=== PATIENT | male | born 1945 | race Caucasian/White ===

== ENCOUNTER → 2020-10-09 08:21 | Outpatient (CLI) | payer MEDICARE, OTHER, SELFPAY ==
[2020-10-09 19:03] LABS: Alanine Aminotransferase 33 IU/L (<50); Albumin 3.7 g/dL (3.5-5.0); Albumin Globulin Ratio 1.4 (1.0-2.8); Alkaline Phosphatase 83 U/L (38-126); Aspartate Aminotransferase 29 IU/L (17-59); BUN Creatinine Ratio 21.6 (6-22); Bilirubin Total 0.4 mg/dL (0.2-1.3); Blood Urea Nitrogen 19 mg/dL (9-20); Carbon Dioxide 29 mmol/L (22-32); Chloride 103 mmol/L (98-107); Cholesterol 203 mg/dL (140-199); Estimated Glomerular Filt Rate > 60.0 mL/min (>60); Globulin 2.7 g/dL (1.7-4.1); Glucose 121 mg/dL (80-110); HDL Cholesterol 34 mg/dL (40-60); HEMOLYSIS < 15 (0-50); Potassium 4.1 mmol/L (3.4-5.1); Sodium 139 mmol/L (137-145); Total Protein 6.4 g/dL (6.3-8.2); Triglycerides 417 mg/dL (35-150)
[2020-10-09 19:14] LABS: Hemoglobin A1C% w Est Avg Glu 6.1 % (4.0-6.0)
[2020-10-09 19:34] LABS: Prostate Specific Antigen Scrn < 0.064 ng/mL (0.1-4.0)
== END ==
PROVIDERS: Family Provider Family Medicine; PCP Family Medicine; Visit Provider Physician Assistant
DX: C61 Malignant neoplasm of prostate (principal); E78.1 Pure hyperglyceridemia; Z12.5 Encounter for screening for malignant neoplasm of prostate; R73.01 Impaired fasting glucose
CPT/HCPCS: 80053; 80061; 83036; G0103

== ENCOUNTER → 2020-11-24 09:17 | Outpatient (CLI) | payer MEDICARE, OTHER, SELFPAY ==
--- NOTE | 2020-11-24 10:06 | DI.ECHO.S_ITS ---
[facility]---------+ [facility] +---------+ : : [address] : [address] : : : : [id number] : : : : Phone: [phone]+ Echocardiogram Report + + :Name: KARLA MATA Study Date: 11/24/2020 Height: 73 in : :[facility] ReadingLocation: Weight: 215 lb : : Gender: Male BSA: 2.2 m2 : :: 1945 Age: 75 yrs BP: 151/98 mmHg: :Reason For Study: Murmur : :Ordering Physician: CAL, : :MINGO Performed By: Santino Chacon : :Referring: MINGO MCCALL : + + Interpretation Summary Left ventricular systolic function appears normal with an estimated ejection fraction of 55 to 60% without any focal wall motion abnormality and appears slightly less dynamic compared to the previous exam. Left ventricular size and wall thickness appear normal. Diastolic function is likely normal with normal filling pressures. The right ventricle appears normal and unchanged. Right ventricular systolic pressure and CVP cannot be estimated on this exam. Both atria are normal in size and are significantly smaller compared to the previous exam. There is mild aortic stenosis that is progressive since the previous exam with a peak velocity of 2.6 m/s and a mean gradient of 15 mmHg. There is no other significant valvular abnormality. Procedure: A two-dimensional transthoracic echocardiogram with color flow and Doppler was performed. The study quality was technically adequate. Comparison is made with the echocardiogram of 07/09/2015. Left Ventricle: The left ventricle is normal in size and wall thickness. Left ventricular systolic function appears normal without focal wall motion abnormalities. The ejection fraction is estimated to be 55-60%. This is slightly less dynamic compared to the previous study. Diastolic parameters suggest probable normal left ventricular diastolic function and normal filling pressures. This is unchanged compared to the previous study. Right Ventricle: The right ventricle is normal in size and function. This is unchanged compared to the previous study. Atria: Both atria are normal in size. Both atria have significantly decreased in size since the prior echo exam. There is no Doppler evidence for an interatrial shunt. Mitral Valve: The mitral valve leaflets are mildly calcified. The mitral valve leaflets appear mildly thickened, but open well. There is trace mitral regurgitation. Aortic Valve: The aortic valve is moderately calcified. The aortic valve is trileaflet. There is mild to moderately reduced leaflet mobility. There is mild aortic stenosis. The peak aortic velocity on the previous exam was 2.6 m/sec. The aortic valve mean gradient is 15 mmHg. This is progressive compared to the previous study. No aortic regurgitation is present. Tricuspid Valve: The tricuspid valve is normal in structure and function. There is trace tricuspid regurgitation. Pulmonary artery pressures cannot be estimated because of the lack of a measurable TR jet velocity. Pulmonic Valve: The pulmonic valve is not well seen, but is grossly normal. There is trace pulmonic regurgitation. Great Vessels: The aortic root is normal size. The dimensions of the ascending aorta are normal. The inferior vena cava was not well visualized. Pericardium/ Pleura There is no pericardial effusion. There is no pleural effusion. MMode/2D Measurements & Calculations LVIDd: 5.4 cm LVOT diam: 2.0 cm LVIDs: 3.8 cm Ao root diam: 3.6 cm FS: 28.6 % asc Aorta Diam: 3.5 cm IVSd: 0.90 cm LVPWd: 0.73 cm LV clements. diameter/BSA (cm/m^2): 2.4 LV sys. diameter/BSA (cm/m^2): 1.7 LA A2 area: 21.1 cm2 RA long axis: 5.2 cm LA A4 area: 19.1 cm2 RA area: 12.3 cm2 LA length (vol): 5.2 cm RA vol: 24.7 ml LA vol: 65.6 ml RA : 11.1 ml/m2 LA vol index: 29.6 ml/m2 IVC diam: 1.7 cm RVD1 (basal): 2.9 cm TAPSE: 2.8 cm Doppler Measurements & Calculations Ao V2 max: 260.9 cm/sec LVOT Max Roque: 101.9 cm/sec Ao V2 mean: 182.9 cm/sec LV V1 max P.2 mmHg Ao max P.1 mmHg LV V1 VTI: 17.9 cm Ao mean P.0 mmHg FAVIOLA(I,D): 1.2 cm2 Ao V2 VTI: 45.6 cm FAVIOLA(V,D): 1.2 cm2 sev ratio: 0.39 FAVIOLA indexed to BSA (cm^2/m^2): 0.55 MV E max roque: 59.8 cm/sec PA V2 max: 127.1 cm/sec MV A max roque: 80.1 cm/sec PA V2 mean: 90.9 cm/sec MV E/A: 0.75 PA mean P.7 mmHg Med Peak E' Roque: 8.0 cm/sec PA pr(Accel): 45.8 mmHg E/E' med: 7.5 Lat Peak E' Roque: 12.3 cm/sec E/E' lat: 4.9 E/e' average: 6.2 MV dec time: 0.26 sec SV(LVOT): 55.5 ml Reading Physician:12:50 PM
== END ==
PROVIDERS: Family Provider Family Medicine; PCP Physician Assistant; Referring Provider Physician Assistant; Visit Provider Physician Assistant
DX: I35.0 Nonrheumatic aortic (valve) stenosis (principal); R01.1 Cardiac murmur, unspecified
CPT/HCPCS: C8929; Q9957

== ENCOUNTER → 2021-01-01 08:29 | Outpatient (CLI) | payer MEDICARE, OTHER, SELFPAY ==
[2021-01-01 20:34] LABS: Prostate Specific Antigen < 0.064 ng/mL (0.10-4.00)
== END ==
PROVIDERS: Family Provider Family Medicine; PCP Physician Assistant; Visit Provider Urology
DX: C61 Malignant neoplasm of prostate (principal)
CPT/HCPCS: 84153

== ENCOUNTER → 2021-03-13 08:10 | Outpatient (CLI) | payer MEDICARE, OTHER, SELFPAY ==
[2021-03-13 23:14] LABS: COVID19 - ORCAS (NP or Nasal) Negative (Negative)
== END ==
PROVIDERS: Family Provider Family Medicine; PCP Physician Assistant; Visit Provider Family Medicine
DX: Z20.822 Contact with and (suspected) exposure to COVID-19 (principal)
CPT/HCPCS: C9803; U0003

== ENCOUNTER 2021-03-16 10:45 | Day surgery (SDC) | payer MEDICARE, OTHER, SELFPAY ==
--- NOTE | 2021-03-16 | PATH_ITS ---
[facility] Accession Number: [id number] . 01 Material submitted: . PART A: colon - TRANSVERSE COLON POLYP X2 PART B: colon - ASCENDING COLON POLYP . 02 Diagnosis: A. Transverse Colon Polyps, Biopsies: Fragments of tubular adenoma (two polyps removed). . B. Ascending Colon Polyp, Biopsy: Tubular adenoma. MRV 03/18/2021 1033 Local . 02 Electronically signed: . Rony Rahman MD, PhD, Pathologist NPI- [id number] . 01 Gross description: . Part A: TRANSVERSE COLON POLYP X2: Received in formalin are 3 fragment(s) of grande, soft tissue measuring 0.4 x 0.3 x 0.2 cm to 0.3 x 0.2 x 0.2 cm submitted entirely in 1 cassette(s) Part B: ASCENDING COLON POLYP: Received in formalin is 1 fragment(s) of grande, soft tissue measuring 0.3 x 0.2 x 0.2 cm submitted entirely in 1 cassette(s) /FAVIOLA 03/17/2021 0344 Local . 02 Pathologist provided ICD-10: D12.2, D12.3 . 02 CPT . 290505, [id number] Performed at: 01 [facility] [address], [place], [place] [id number] MD Shadi Reed MD Phone: [phone] Performed at: 02 [facility] [address] [place], [place] [id number] MD Arlette Marks MD Phone: [phone]
[2021-03-16 11:08] VITALS: BP 114/76; PULSE 97; RESP 18; TEMP 37; O2SAT 99; BMI 27.7
--- NOTE | 2021-03-16 11:27 | P.HP_ITS ---
History of Present Illness History of Present Illness Date Patient Seen: 03/16/21 Time Patient Seen: 11:28 Chief complaint: [facility] Narrative: The patient presents for colorectal sreening. He had a previous colonoscopy 6 years ago. His mother had colon cancer. On further history denies any recent gastrointestinal symptoms. No nausea, vomiting, abdominal pain, loss of appetite, unexplained weight loss, change in bowel habits, diarrhea, constipation, melena, hematochezia, or bright red blood per rectum. 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 H/O colonoscopy History of aorto-femoral bypass (~1994) History of prostate surgery (~2019) History of surgery (~2007) Hx of BKA Family & Social History Family History Father History of heart disease Hypertension Hyperlipidemia Stroke Mother Cancer Brother History of heart disease Brother Alcohol abuse Sister defect Grandfather History of heart disease Hyperlipidemia Hypertension Tobacco & Substance use: Smoking Status Former smoker Meds Home Medications and Allergies Home Medications Medication Instructions Recorded Confirmed Type aspirin 325 mg tablet 325 mg PO DAILY 09/23/20 03/16/21 History multivitamin 1 tab PO DAILY 09/23/20 03/16/21 History zolpidem 5 mg tablet 5 mg PO BEDTIME PRN 09/23/20 03/16/21 History pregabalin 200 mg capsule 200 mg PO DAILY #90 cap 09/25/20 03/16/21 Rx simvastatin 20 mg tablet 20 mg PO BEDTIME #90 tab 09/25/20 03/16/21 Rx Prosthetic Socks #2 ea 01/21/21 02/16/21 Rx Prosthetic Exam and Repair #1 ea 01/21/21 02/16/21 Rx triamcinolone acetonide 0.1 % See Rx Instructions .ROUTE 01/26/21 03/16/21 Rx topical cream .COMPLEX #30 gram Replacement foot for below knee #1 ea 03/02/21 Rx prosthesis Allergies Allergy/AdvReac Type Severity Reaction Status Date / Time hydrocodone Allergy Mild SKIN Verified 03/16/21 10:09 ITCHING Exam Narrative Exam Narrative: Constitutional-he is oriented to person, place and time. No apparent distress Cardiovascular- regular rate, below knee left amputation Pulmonary-unlabored respiratory effort, no audible wheezing Abdominal-soft, non-tender, non-distended Musculoskeletal-no cyanosis or clubbing Neurological-nonfocal, normal strength throughout, Skin-warm and dry Assessment & Plan Assessment & Plan narrative: The patient requires colorectal screening and colonoscopy is recommended. Technical details were discussed. Risks, benefits, alternatives explained. Risks including but not limited to myocardial infarction, aspiration, bleeding, pain, missed lesion, incomplete examination, need for further radiographic studies, colonic perforation, and need for major abdominal surgery were discussed. All questions were answered to their satisfaction, and they are in agreement with this plan. Time Spent With Patient Critical Care time: I spent a total of [] minutes of critical care time on this patient's care today; this time is exclusive of procedural time.
[2021-03-16] MEDS: LACTATED RINGERS 1,000 ML 200 ML IV (11:29)
[2021-03-16] MEDS: MIDAZOLAM 5 MG/5 ML VIAL IV (11:43)
[2021-03-16] MEDS: fentaNYL 250 MCG/5 ML INJ IV (11:53)
--- NOTE | 2021-03-16 12:03 | P.OP.COLON_ITS ---
Operative Date/Time/Diagnoses Date of procedure: 03/16/21 Time of procedure: 12:03 Pre-op diagnosis: Personal history of colonic polyps Post-op diagnosis: same Procedure & Clinicians Study performed: Colonoscopy Same procedure as scheduled: Yes Indications: Personal history of colonic polyps Surgeon: Roly Henry Procedure Notes Procedure in detail: Medications: Conscious sedation using 5mg IV midazolam and 200mcg IV of fentanyl The history and physical was performed/updated and the patient is ASA class is 3. The procedure was discussed in detail with the patient. Potential risks complications including infection, bleeding, missed diagnosis, perforation, need for surgery, and were explained. Their questions were answered and informed consent was obtained. Patient was brought to the procedure room and placed standard monitoring equipment. The patient's vital signs were monitored continuously throughout the entire procedure. Prior to starting time-out was performed. The patient was placed in the left lateral recumbent position. Procedural sedation was administered. Examination began with a thorough inspection of the perianal area there was no evidence of fissures, fistulae, external hemorrhoids or cutaneous m alignancy. The colonoscopy scope was then placed into the anal canal and was advanced to the cecum, which was identified by the ileocecal valve, the appendiceal orifice and the confluence of the taenia. The scope was then slowly withdrawn examining colon thoroughly in all directions, irrigating it of any residual stool. FINDINGS 1. Transverse colonic polyps x 2 each <1 cm removed biopsy forceps 2. Ascending colonic polyp <1 cm biopsy forceps The patient tolerated the procedure well. They will be discharged once criteria are met. The prep was of fair quality. The withdrawl time was 9 minutes. The sedation time was 25 minutes. Specimen(s): other (ascending colon, transverse colon x 2) Complications: none Impression: colonic polyps Post-procedure Recommendations: Colonoscopy in 5 years Disposition: same day surgery
[2021-03-16 12:11] VITALS: BP 118/74; PULSE 94; RESP 16; O2SAT 97
[2021-03-16 12:14] VITALS: BP 131/77; PULSE 91; RESP 13; TEMP 36.6; O2SAT 97
[2021-03-16 12:15] VITALS: BP 111/73; PULSE 85; RESP 16; O2SAT 96
[2021-03-16 12:16] VITALS: BP 113/71; PULSE 90; RESP 21; TEMP 36.6; O2SAT 97
[2021-03-16 12:25] VITALS: BP 101/77; PULSE 85; RESP 15; TEMP 36.6; O2SAT 97
== END 2021-03-16 12:42 | disposition home or self-care (01) ==
PROVIDERS: Family Provider Family Medicine; PCP Physician Assistant; Referring Provider Surgery; Visit Provider Surgery
PROC: 0DJD8ZZ Inspection of Lower Intestinal Tract, Via Natural or Artificial Opening Endoscopic (ICD-10-PCS; CPT 45378; principal; 2021-03-16 11:15)
DX: Z12.11 Encounter for screening for malignant neoplasm of colon (principal); Z86.010 Personal history of colon polyps; Z80.0 Family history of malignant neoplasm of digestive organs; D12.2 Benign neoplasm of ascending colon; D12.3 Benign neoplasm of transverse colon
CPT/HCPCS: 45380; 99152; J2250; J3010

== ENCOUNTER → 2021-04-29 11:43 | Outpatient (CLI) | payer MEDICARE, OTHER, SELFPAY ==
[2021-04-29 19:58] LABS: Prostate Specific Antigen < 0.064 ng/mL (0.10-4.00)
== END ==
PROVIDERS: Urology; Family Provider Family Medicine; PCP Physician Assistant; Visit Provider Physician Assistant
DX: C61 Malignant neoplasm of prostate (principal)
CPT/HCPCS: 84153